=== PATIENT | male | born 1985 | race Caucasian/White ===

== ENCOUNTER 2019-10-01 14:46 | Inpatient (IN) | payer OTHER ==
--- NOTE | 2019-10-01 15:30 | BHS.RME ---
Substance Use & Tx History - Substance Use History Alcohol Substance amount: 1 pint vodka Frequency of use: Daily Substance route: Oral Date of Last Use: 10/01/19 Nicotine Substance amount: 1/2 pack Frequency of use: Daily Substance route: Smoking Date of Last Use: 10/01/19 Physical/Psych/Mental Status - Behavior General Behavior: Increased activity (restlessness, agitation) Eye Contact: Normal - Cooperativeness Cooperativeness: Cooperative - Thinking Thought Processes: Tight, Logical, Goal Directed - Physical Health Problems Is patient presently having any pain?: No Does patient presently have any injuries (include location): No Does patient currently have a fever: No Is patient : No CIWA Nausea/Vomitin Muscle Tremors: 3 Anxiety: 2 Agitation: 2 Paroxysmal Sweats: 4-Forehead w/Sweat Beads Orientation: 1-Uncertain about Date Tacttile Disturbances: 0-None Auditory Disturbances: 0-None Visual Disturbances: 0-None Headache: 0-None Present CIWA-Ar Total Score: 17
--- NOTE | 2019-10-01 16:27 | HP ---
CIWA Score Nausea/Vomitin Muscle Tremors: 3 Anxiety: 3 Agitation: 3 Paroxysmal Sweats: No Perspiration Orientation: 1-Uncertain about Date Tacttile Disturbances: 0-None Auditory Disturbances: 0-None Visual Disturbances: 0-None Headache: 0-None Present CIWA-Ar Total Score: 13 - Admission Criteria [facility]AS[facility] Guidelines: Admission for Medically Managed Detox: Requires at least one of the followin. CIWA greater than 12 2. Seizures within the past 24 hours 3. Delirium tremens within the past 24 hours 4. Hallucinations within the past 24 hours 5. Acute intervention needed for co occurring medical disorder 6. Acute intervention needed for co occurring psychiatric disorder 7. Severe withdrawal that cannot be handled at a lower level of care (continued vomiting, continued diarrhea, abnormal vital signs) requiring intravenous medication and/or fluids 8. Admission ROS BHS - HPI Allergies/Adverse Reactions: Allergies Allergy/AdvReac Type Severity Reaction Status Date / Time No Known Allergies Allergy Verified 10/01/19 16:30 History of Present Illness: 34 y.o. male requesting detox from alcohol use , reports 1 liter /day starts drinking in the mornings , denies seizures or blackouts , reports tremors denies injuries to self or others , latest use today , first age of use 23 , increased since 6 months ago . denies illicits tobacco : occasional PMHX : denies PSHX : denies PSych : denies Exam Limitations: Clinical Condition, Intoxication - Review of Systems Constitutional: Loss of Appetite EENT: reports: No Symptoms Reported Respiratory: reports: No Symptoms reported Cardiac: reports: No Symptoms Reported GI: reports: See HPI, Nausea, Poor Appetite : reports: No Symptoms Reported Musculoskeletal: reports: No Symptoms Reported Integumentary: reports: No Symptoms Reported Neuro: reports: Tremors Endocrine: reports: No Symptoms Reported Psychiatric: reports: Agitated, Anxious, Disorientated Patient History - Smoking Cessation Smoking history: Current some day smoker Have you smoked in the past 12 months: Yes Hx Chewing Tobacco Use: No Initiated information on smoking cessation: No - Substances abused Alcohol Substance route: Oral Frequency: Daily Amount used: liquor- 1 liter Age of first use: 23 Date of last use: 09/30/19 Admission Physical Exam S - Physical General Appearance: Yes: Moderate Distress, Intoxicated, Anxious HEENTM: Yes: EOMI, Hearing grossly Normal, Normocephalic, Normal Voice Respiratory: Yes: Chest Non-Tender, Lungs Clear, Normal Breath Sounds, No Respiratory Distress, No Accessory Muscle Use Neck: Yes: No masses,lesions,Nodules, Trachea in good position Cardiology: Yes: Regular Rhythm, Regular Rate, S1, S2, Tachycardia Abdominal: Yes: Non Tender, Soft Musculoskeletal: Yes: Gait Steady Extremities: Yes: Normal Range of Motion, Non-Tender, Tremors, Other (clubbing x 10 fingers) Neurological: Yes: Alert, Motor Strength 5/5, Depressed Affect Integumentary: Yes: Warm - Diagnostic (1) Alcohol intoxication Current Visit: Yes Status: Acute Qualifiers: Complication of substance-induced condition: uncomplicated Qualified Code(s): F10.920 - Alcohol use, unspecified with intoxication, uncomplicated Breathalyzer - Breathalyzer Breathalyzer: 0.082 Urine Drug Screen - Test Device Lot number: [id number] Expiration date: 11/17/20 - Control Is test valid?: Yes - Results Drug screen NEGATIVE: No Urine drug screen results: BZO-Benzodiazepines Inpatient Rehab Admission - Rehab Decision to Admit Inpatient rehab admission?: No
[2019-10-01] MEDS ORDERED: ACETAMINOPHEN 325 MG TABLET (FP) PO PRN ×2 (16:30)
[2019-10-01] MEDS ORDERED: ONDANSETRON *ODT* 4 MG TABLET SL ONE (16:30)
[2019-10-01] MEDS ORDERED: MAGNESIUM HYDROX 2400MG/30ML ORAL SUSPENSION 30 ML CUP PO PRN (16:30)
[2019-10-01] MEDS ORDERED: BISMUTH SUBSALICYLATE 524 MG/30 ML UD PO PRN (16:30)
[2019-10-01] MEDS ORDERED: MENTHOL/PHENOL 1 EACH UD MM PRN (16:30)
[2019-10-01] MEDS ORDERED: IBUPROFEN 400 MG TABLET (FP) PO PRN (16:30)
[2019-10-01] MEDS ORDERED: MAG HYDROX/AL HYDROX/SIMETH 30 ML UNIT-DOSE CUP PO PRN (16:30)
[2019-10-01] MEDS ORDERED: MAGNESIUM CITRATE 300 ML BOTTLE PO PRN (16:30)
[2019-10-01] MEDS ORDERED: METHOCARBAMOL 500 MG TABLET PO PRN (16:30)
[2019-10-01] MEDS ORDERED: chlordiazePOXIDE HCL 25 MG CAPSULE PO PRN (16:31)
[2019-10-01 16:47] VITALS: BMI 30.4
[2019-10-01] MEDS: chlordiazePOXIDE HCL 25 MG CAPSULE PO SCH ×2 (17:40→22:07)
[2019-10-01] MEDS: MELATONIN 5 MG TABLETS PO PRN (22:07)
[2019-10-01] MEDS: THIAMINE HCL 100 MG TABLET (FP) PO SCH (22:07)
[2019-10-02] MEDS: chlordiazePOXIDE HCL 25 MG CAPSULE PO SCH ×4 (06:00→22:04)
[2019-10-02] MEDS ORDERED: ONDANSETRON *ODT* 4 MG TABLET SL ONE (06:05)
--- NOTE | 2019-10-02 06:08 | PN ---
[facility] Progress Note Note: Patient complained of nausea. Denies vomiting at this time. Vital Signs Temperature 99.1 F 10/02/19 05:26 Pulse Rate 58 L 10/02/19 05:26 Respiratory Rate 18 10/02/19 05:26 Blood Pressure 126/80 10/02/19 05:26 O2 Sat by Pulse Oximetry (%) 97 10/02/19 05:26 Action: Ondansetron (Zofran Odt) 4mg sublingual ordered
--- NOTE | 2019-10-02 09:44 | EKG ---
Test Reason : Blood Pressure : / mmHG Vent. Rate : 073 BPM Atrial Rate : 073 BPM P-R Int : 174 ms QRS Dur : 094 ms QT Int : 406 ms P-R-T Axes : 050 042 039 degrees QTc Int : 447 ms NORMAL SINUS RHYTHM WITH SINUS ARRHYTHMIA NORMAL ECG NO PREVIOUS ECGS AVAILABLE Confirmed by MD HUONG, JAK ([id number]) on 10/02/2019 9:43:48 AM Referred By: Confirmed By:JAK BORJA MD
[2019-10-02] MEDS: PRENATAL VITAMINS W/ FOLIC ACID TABLET (FP) PO SCH (10:56)
[2019-10-02 11:20] LABS: HEMATOCRIT 41.3 % (35.4-49); MCH 32.5 pg (25.7-33.7); MEAN CELL VOLUME 95.8 fl (80-96); MEAN PLT VOLUME 7.2 fl (7.5-11.1); PLATELET COUNT 87 K/MM3 (134-434); RBC 4.32 M/mm3 (4.00-5.60); RDW 13.9 % (11.9-15.9); WHITE BLOOD COUNT 3.3 K/mm3 (4.0-10.0)
[2019-10-02 11:48] LABS: BILIRUBIN,TOTAL 1.6 mg/dL (0.2-1); BLOOD UREA NITROGEN 8.5 mg/dL (7-18); CALCIUM 9.7 mg/dL (8.5-10.1); CREATININE 0.6 mg/dL (0.55-1.3); POTASSIUM 3.5 mmol/L (3.5-5.1); TOT PROT 6.8 g/dl (6.4-8.2)
--- NOTE | 2019-10-02 13:37 | PN ---
S CIWA - CIWA Score Nausea/Vomitin Muscle Tremors: 3 Anxiety: 2 Agitation: 2 Paroxysmal Sweats: No Perspiration Orientation: 0-Oriented Tacttile Disturbances: 1-Very Mild Itch/Numbness Auditory Disturbances: 0-None Visual Disturbances: 0-None Headache: 1-Very Mild CIWA-Ar Total Score: 11 S Progress Note (SOAP) Subjective: alert,irritable,anxious,interrupted sleep,tremor,nausea,aching pain in the body and back Objective: 10/02/19 13:34 Vital Signs Temperature 97.3 F L 10/02/19 08:45 Pulse Rate 65 10/02/19 08:45 Respiratory Rate 18 10/02/19 08:45 Blood Pressure 133/92 10/02/19 08:45 O2 Sat by Pulse Oximetry (%) 97 10/02/19 08:45 10/02/19 13:35 Laboratory Last Values WBC 3.3 K/mm3 (4.0-10.0) L 10/02/19 07:30 RBC 4.32 M/mm3 (4.00-5.60) 10/02/19 07:30 Hgb 14.0 GM/dL (11.7-16.9) 10/02/19 07:30 Hct 41.3 % (35.4-49) 10/02/19 07:30 MCV 95.8 fl (80-96) 10/02/19 07:30 MCH 32.5 pg (25.7-33.7) 10/02/19 07:30 MCHC 34.0 g/dl (32.0-35.9) 10/02/19 07:30 RDW 13.9 % (11.9-15.9) 10/02/19 07:30 Plt Count 87 K/MM3 (134-434) L 10/02/19 07:30 MPV 7.2 fl (7.5-11.1) L 10/02/19 07:30 Sodium 138 mmol/L (136-145) 10/02/19 07:30 Potassium 3.5 mmol/L (3.5-5.1) 10/02/19 07:30 Chloride 99 mmol/L (98-107) 10/02/19 07:30 Carbon Dioxide 29 mmol/L (21-32) 10/02/19 07:30 Anion Gap 10 MMOL/L (8-16) 10/02/19 07:30 BUN 8.5 mg/dL (7-18) 10/02/19 07:30 Creatinine 0.6 mg/dL (0.55-1.3) 10/02/19 07:30 Est GFR (CKD-EPI)AfAm 149.92 10/02/19 07:30 Est GFR (CKD-EPI)NonAf 129.35 10/02/19 07:30 Random Glucose 102 mg/dL (74-106) 10/02/19 07:30 Calcium 9.7 mg/dL (8.5-10.1) 10/02/19 07:30 Total Bilirubin 1.6 mg/dL (0.2-1) H 10/02/19 07:30 AST 86 U/L (15-37) H 10/02/19 07:30 ALT 96 U/L (13-61) H 10/02/19 07:30 Alkaline Phosphatase 99 U/L (45-117) 10/02/19 07:30 Total Protein 6.8 g/dl (6.4-8.2) 10/02/19 07:30 Albumin 4.0 g/dl (3.4-5.0) 10/02/19 07:30 Syphilis Serology Non-reactive (NONREACTIVE) 10/02/19 07:30 Assessment: 10/02/19 13:36 withdrawal symptom Plan: continue detox librium regimen ,repeat hepatic function in am,inr in am
[2019-10-02] MEDS: NICOTINE POLACRILEX 2 MG GUM BC PRN ×2 (14:43→19:20)
[2019-10-02] MEDS: THIAMINE HCL 100 MG TABLET (FP) PO SCH (22:04)
[2019-10-02] MEDS: hydrOXYzine PAMOATE 25 MG CAPSULE (FP) PO PRN (23:05)
[2019-10-02] MEDS: MELATONIN 5 MG TABLETS PO PRN (23:05)
[2019-10-03] MEDS: chlordiazePOXIDE HCL 25 MG CAPSULE PO SCH ×4 (06:12→22:04)
[2019-10-03] MEDS: NICOTINE POLACRILEX 2 MG GUM BC PRN ×3 (06:13→17:18)
--- NOTE | 2019-10-03 09:27 | PN ---
S CIWA - CIWA Score Nausea/Vomitin-Mild Nausea/No Vomiting Muscle Tremors: 2 Anxiety: 2 Agitation: 3 Paroxysmal Sweats: 1-Minimal Palms Moist Orientation: 0-Oriented Tacttile Disturbances: 0-None Auditory Disturbances: 0-None Visual Disturbances: 0-None Headache: 0-None Present CIWA-Ar Total Score: 9 BHS Progress Note (SOAP) Subjective: sweats shakes poor appetite interrupted sleep Objective: 10/03/19 09:28 Vital Signs Temperature 97.8 F 10/03/19 05:26 Pulse Rate 54 L 10/03/19 05:26 Respiratory Rate 18 10/03/19 05:26 Blood Pressure 120/76 10/03/19 05:26 O2 Sat by Pulse Oximetry (%) 97 10/03/19 05:26 Laboratory Tests 10/02/19 10/02/19 10/02/19 07:30 07:30 07:30 WBC 3.3 L RBC 4.32 Hgb 14.0 Hct 41.3 MCV 95.8 MCH 32.5 MCHC 34.0 RDW 13.9 Plt Count 87 L MPV 7.2 L Sodium 138 Potassium 3.5 Chloride 99 Carbon Dioxide 29 Anion Gap 10 BUN 8.5 Creatinine 0.6 Est GFR (CKD-EPI)AfAm 149.92 Est GFR (CKD-EPI)NonAf 129.35 Random Glucose 102 Calcium 9.7 Total Bilirubin 1.6 H AST 86 H ALT 96 H Alkaline Phosphatase 99 Total Protein 6.8 Albumin 4.0 Syphilis Serology Non-reactive repeated labs pending aaox3 ambulating no acute distress Assessment: 10/03/19 09:29 withdrawals Plan: continue detox increase fluids ensure bid for lunch and dinner pending labs
[2019-10-03] MEDS: NICOTINE 21 MG/24 HOURS TOPICAL PATCH TD SCH (10:48)
[2019-10-03] MEDS: PRENATAL VITAMINS W/ FOLIC ACID TABLET (FP) PO SCH (10:49)
[2019-10-03 11:10] LABS: HEMATOCRIT 41.2 % (35.4-49); HEMOGLOBIN 13.8 GM/dL (11.7-16.9); MCH 32.3 pg (25.7-33.7); MCHC 33.4 g/dl (32.0-35.9); MEAN CELL VOLUME 96.7 fl (80-96); PLATELET COUNT 80 K/MM3 (134-434); RBC 4.26 M/mm3 (4.00-5.60); RDW 14.1 % (11.9-15.9); WHITE BLOOD COUNT 4.8 K/mm3 (4.0-10.0)
[2019-10-03 11:17] LABS: ALBUMIN 3.6 g/dl (3.4-5.0); BILIRUBIN,DIRECT 0.3 mg/dL (0.0-0.2); BILIRUBIN,TOTAL 1.2 mg/dL (0.2-1); TOT PROT 6.6 g/dl (6.4-8.2)
[2019-10-03] MEDS: hydrOXYzine PAMOATE 25 MG CAPSULE (FP) PO PRN ×2 (17:16→22:06)
[2019-10-03] MEDS: THIAMINE HCL 100 MG TABLET (FP) PO SCH (22:04)
[2019-10-03] MEDS: MELATONIN 5 MG TABLETS PO PRN (22:06)
[2019-10-04] MEDS ORDERED: chlordiazePOXIDE HCL 10 MG CAPSULE PO PRN
[2019-10-04] MEDS ORDERED: chlordiazePOXIDE HCL 10 MG CAPSULE PO SCH (05:00)
[2019-10-04] MEDS ORDERED: LORazepam 1 MG TABLET PO SCH (05:00)
[2019-10-04] MEDS: NICOTINE POLACRILEX 2 MG GUM BC PRN ×3 (09:05→21:17)
[2019-10-04] MEDS ORDERED: LORazepam 1 MG TABLET PO PRN (09:28)
--- NOTE | 2019-10-04 09:44 | PN ---
[facility] CIWA - CIWA Score Nausea/Vomitin-Mild Nausea/No Vomiting Muscle Tremors: 2 Anxiety: 2 Agitation: 2 Paroxysmal Sweats: No Perspiration Orientation: 0-Oriented Tacttile Disturbances: 1-Very Mild Itch/Numbness Auditory Disturbances: 0-None Visual Disturbances: 0-None Headache: 1-Very Mild CIWA-Ar Total Score: 9 S Progress Note (SOAP) Subjective: alert,irritable,anxious,interrupted sleep,tremor,body ache,nausea Objective: 10/04/19 09:41 Vital Signs Temperature 97.1 F L 10/04/19 08:51 Pulse Rate 63 10/04/19 08:51 Respiratory Rate 18 10/04/19 08:51 Blood Pressure 123/86 10/04/19 08:51 O2 Sat by Pulse Oximetry (%) 98 10/04/19 08:51 Laboratory Last Values WBC 4.8 K/mm3 (4.0-10.0) 10/03/19 07:50 RBC 4.26 M/mm3 (4.00-5.60) 10/03/19 07:50 Hgb 13.8 GM/dL (11.7-16.9) 10/03/19 07:50 Hct 41.2 % (35.4-49) 10/03/19 07:50 MCV 96.7 fl (80-96) H 10/03/19 07:50 MCH 32.3 pg (25.7-33.7) 10/03/19 07:50 MCHC 33.4 g/dl (32.0-35.9) 10/03/19 07:50 RDW 14.1 % (11.9-15.9) 10/03/19 07:50 Plt Count 80 K/MM3 (134-434) L 10/03/19 07:50 MPV 8.0 fl (7.5-11.1) D 10/03/19 07:50 Sodium 138 mmol/L (136-145) 10/02/19 07:30 Potassium 3.5 mmol/L (3.5-5.1) 10/02/19 07:30 Chloride 99 mmol/L (98-107) 10/02/19 07:30 Carbon Dioxide 29 mmol/L (21-32) 10/02/19 07:30 Anion Gap 10 MMOL/L (8-16) 10/02/19 07:30 BUN 8.5 mg/dL (7-18) 10/02/19 07:30 Creatinine 0.6 mg/dL (0.55-1.3) 10/02/19 07:30 Est GFR (CKD-EPI)AfAm 149.92 10/02/19 07:30 Est GFR (CKD-EPI)NonAf 129.35 10/02/19 07:30 Random Glucose 102 mg/dL (74-106) 10/02/19 07:30 Calcium 9.7 mg/dL (8.5-10.1) 10/02/19 07:30 Total Bilirubin 1.2 mg/dL (0.2-1) H 10/03/19 07:50 Direct Bilirubin 0.3 mg/dL (0.0-0.2) H 10/03/19 07:50 AST 626 U/L (15-37) H 10/03/19 07:50 ALT 431 U/L (13-61) H 10/03/19 07:50 Alkaline Phosphatase 121 U/L (45-117) H 10/03/19 07:50 Total Protein 6.6 g/dl (6.4-8.2) 10/03/19 07:50 Albumin 3.6 g/dl (3.4-5.0) 10/03/19 07:50 Syphilis Serology Non-reactive (NONREACTIVE) 10/02/19 07:30 COVID-19 (MICHAEL) Not detected (Not Detected) 10/01/19 17:00 Assessment: 10/04/19 09:42 withdrawal symptom Plan: change regimen from librium to ativan due to elevated alt,ast,alkaline phosphates,repeat hepatic function,inr in am,discussed with patient,
[2019-10-04] MEDS: NICOTINE 21 MG/24 HOURS TOPICAL PATCH TD SCH (11:18)
[2019-10-04] MEDS: LORazepam 1 MG TABLET PO SCH ×3 (11:18→22:26)
[2019-10-04] MEDS: PRENATAL VITAMINS W/ FOLIC ACID TABLET (FP) PO SCH (11:19)
[2019-10-04] MEDS: THIAMINE HCL 100 MG TABLET (FP) PO SCH (22:26)
[2019-10-04] MEDS: MELATONIN 5 MG TABLETS PO PRN (22:53)
[2019-10-04] MEDS: hydrOXYzine PAMOATE 25 MG CAPSULE (FP) PO PRN (22:53)
[2019-10-05] MEDS ORDERED: LORazepam 0.5 MG TABLET PO PRN
[2019-10-05] MEDS ORDERED: chlordiazePOXIDE HCL 10 MG CAPSULE PO SCH (05:00)
[2019-10-05] MEDS: LORazepam 0.5 MG TABLET PO SCH ×4 (05:25→22:29)
[2019-10-05] MEDS: NICOTINE POLACRILEX 2 MG GUM BC PRN ×3 (08:34→22:45)
[2019-10-05] MEDS: NICOTINE 21 MG/24 HOURS TOPICAL PATCH TD SCH (10:26)
[2019-10-05] MEDS: PRENATAL VITAMINS W/ FOLIC ACID TABLET (FP) PO SCH (10:26)
[2019-10-05 10:35] LABS: INR 0.9 (0.83-1.09); PROTHROMBIN TIME (PATIENT) 10.6 SEC (9.7-13.0)
[2019-10-05 10:41] LABS: ALBUMIN 3.7 g/dl (3.4-5.0); BILIRUBIN,DIRECT 0.2 mg/dL (0.0-0.2); BILIRUBIN,TOTAL 0.5 mg/dL (0.2-1); TOT PROT 6.9 g/dl (6.4-8.2)
--- NOTE | 2019-10-05 12:29 | PN ---
S CIWA - CIWA Score Nausea/Vomitin-No Nausea/No Vomiting Muscle Tremors: 2 Anxiety: 2 Agitation: 0-Normal Activity Paroxysmal Sweats: No Perspiration Orientation: 0-Oriented Tacttile Disturbances: 0-None Auditory Disturbances: 0-None Visual Disturbances: 0-None Headache: 0-None Present CIWA-Ar Total Score: 4 BHS Progress Note (SOAP) Subjective: Complaints of mild anxiety and tremors. Objective: 10/05/19 12:28 Vital Signs 10/05/19 10/05/19 05:12 08:32 Temperature 97.1 F L 97.3 F L Pulse Rate 69 75 Respiratory 20 16 Rate Blood Pressure 115/69 126/80 O2 Sat by Pulse 100 100 Oximetry (%) Laboratory Last Values WBC 4.8 K/mm3 (4.0-10.0) 10/03/19 07:50 RBC 4.26 M/mm3 (4.00-5.60) 10/03/19 07:50 Hgb 13.8 GM/dL (11.7-16.9) 10/03/19 07:50 Hct 41.2 % (35.4-49) 10/03/19 07:50 MCV 96.7 fl (80-96) H 10/03/19 07:50 MCH 32.3 pg (25.7-33.7) 10/03/19 07:50 MCHC 33.4 g/dl (32.0-35.9) 10/03/19 07:50 RDW 14.1 % (11.9-15.9) 10/03/19 07:50 Plt Count 80 K/MM3 (134-434) L 10/03/19 07:50 MPV 8.0 fl (7.5-11.1) D 10/03/19 07:50 PT with INR 10.60 SEC (9.7-13.0) 10/05/19 07:20 INR 0.90 (0.83-1.09) 10/05/19 07:20 Sodium 138 mmol/L (136-145) 10/02/19 07:30 Potassium 3.5 mmol/L (3.5-5.1) 10/02/19 07:30 Chloride 99 mmol/L (98-107) 10/02/19 07:30 Carbon Dioxide 29 mmol/L (21-32) 10/02/19 07:30 Anion Gap 10 MMOL/L (8-16) 10/02/19 07:30 BUN 8.5 mg/dL (7-18) 10/02/19 07:30 Creatinine 0.6 mg/dL (0.55-1.3) 10/02/19 07:30 Est GFR (CKD-EPI)AfAm 149.92 10/02/19 07:30 Est GFR (CKD-EPI)NonAf 129.35 10/02/19 07:30 Random Glucose 102 mg/dL (74-106) 10/02/19 07:30 Calcium 9.7 mg/dL (8.5-10.1) 10/02/19 07:30 Total Bilirubin 0.5 mg/dL (0.2-1) 10/05/19 07:20 Direct Bilirubin 0.2 mg/dL (0.0-0.2) 10/05/19 07:20 AST 232 U/L (15-37) H 10/05/19 07:20 ALT 482 U/L (13-61) H 10/05/19 07:20 Alkaline Phosphatase 130 U/L (45-117) H 10/05/19 07:20 Total Protein 6.9 g/dl (6.4-8.2) 10/05/19 07:20 Albumin 3.7 g/dl (3.4-5.0) 10/05/19 07:20 Syphilis Serology Non-reactive (NONREACTIVE) 10/02/19 07:30 COVID-19 (MICHAEL) Not detected (Not Detected) 10/01/19 17:00 Labs noted, still with elevated liver enzymes. Pt encouraged to follow up with PCP post discharge for further work up. Assessment: 10/05/19 12:29 Alert and oriented x 3, in no acute respiratory distress. Full ROM, ambulating in the unit without assistance. Withdrawal symptoms. Elevated liver enzymes. For D/C in AM. Plan: Continue detox protocol. D/C in AM.
[2019-10-05] MEDS: THIAMINE HCL 100 MG TABLET (FP) PO SCH (22:29)
[2019-10-05] MEDS: MELATONIN 5 MG TABLETS PO PRN (22:30)
[2019-10-06] MEDS ORDERED: LORazepam 0.5 MG TABLET PO ONE (05:00)
[2019-10-06] MEDS ORDERED: chlordiazePOXIDE HCL 10 MG CAPSULE PO ONE (05:00)
[2019-10-06] MEDS: NICOTINE POLACRILEX 2 MG GUM BC PRN (05:44)
[2019-10-06 07:25] VITALS: BP 107/65; PULSE 60; TEMP 97.7
--- NOTE | 2019-10-06 16:16 | DS ---
[facility] Detox Discharge Summary Admission Date: 10/01/19 Discharge Date: 10/06/19 - History Present History: Alcohol Dependence Additional Comments: Pt completed detox successfully and was discharged safely in stable condition. Pt instructed to follow up with PCP within 1 week and for abnormal lab results. Pertinent Past History: Alcohol dependence Nicotine use disorder - Physical Exam Results Vital Signs: Vital Signs Temperature 97.7 F 10/06/19 06:10 Pulse Rate 60 10/06/19 06:10 Respiratory Rate 20 10/06/19 06:10 Blood Pressure 107/65 10/06/19 06:10 O2 Sat by Pulse Oximetry (%) 100 10/06/19 06:10 Pertinent Admission Physical Exam Findings: Withdrawal sxs Laboratory Tests 10/01/19 10/02/19 10/02/19 17:00 07:30 07:30 WBC 3.3 L RBC 4.32 Hgb 14.0 Hct 41.3 MCV 95.8 MCH 32.5 MCHC 34.0 RDW 13.9 Plt Count 87 L MPV 7.2 L PT with INR INR Sodium Potassium Chloride Carbon Dioxide Anion Gap BUN Creatinine Est GFR (CKD-EPI)AfAm Est GFR (CKD-EPI)NonAf Random Glucose Calcium Total Bilirubin Direct Bilirubin AST ALT Alkaline Phosphatase Total Protein Albumin Syphilis Serology Non-reactive COVID-19 (MICHAEL) Not detected 10/02/19 10/03/19 10/03/19 07:30 07:50 07:50 WBC 4.8 RBC 4.26 Hgb 13.8 Hct 41.2 MCV 96.7 H MCH 32.3 MCHC 33.4 RDW 14.1 Plt Count 80 L MPV 8.0 D PT with INR INR Sodium 138 Potassium 3.5 Chloride 99 Carbon Dioxide 29 Anion Gap 10 BUN 8.5 Creatinine 0.6 Est GFR (CKD-EPI)AfAm 149.92 Est GFR (CKD-EPI)NonAf 129.35 Random Glucose 102 Calcium 9.7 Total Bilirubin 1.6 H 1.2 H Direct Bilirubin 0.3 H AST 86 H 626 H ALT 96 H 431 H Alkaline Phosphatase 99 121 H Total Protein 6.8 6.6 Albumin 4.0 3.6 Syphilis Serology COVID-19 (MICHAEL) 10/05/19 10/05/19 07:20 07:20 WBC RBC Hgb Hct MCV MCH MCHC RDW Plt Count MPV PT with INR 10.60 INR 0.90 Sodium Potassium Chloride Carbon Dioxide Anion Gap BUN Creatinine Est GFR (CKD-EPI)AfAm Est GFR (CKD-EPI)NonAf Random Glucose Calcium Total Bilirubin 0.5 Direct Bilirubin 0.2 AST 232 H ALT 482 H Alkaline Phosphatase 130 H Total Protein 6.9 Albumin 3.7 Syphilis Serology COVID-19 (MICHAEL) Labs reviewed: elevated LFTs (AST trending downward, ALT trended upward, total bilirubin trending downward); patient instructed to see PCP within 1 week - Treatment Hospital Course: Detox Protocol Followed, Detoxed Safely, Responded well, Discharged Condition Good - Medication Discharge Medications: Ambulatory Orders NK [No Known Home Medication] 10/01/19 - Diagnosis (1) Nicotine use disorder Status: Chronic (2) Elevated LFTs Status: Acute (3) Alcohol intoxication Status: Acute Qualifiers: Complication of substance-induced condition: uncomplicated Qualified Code(s): F10.920 - Alcohol use, unspecified with intoxication, uncomplicated - AMA Did Patient Leave Against Medical Advice: No (Instructed to follow up with PCP within 1 week)
== END 2019-10-06 09:20 | disposition home or self-care (01) | DRG 775 ==
LOC: YASAS 14:46 → Y6N 16:44
PROVIDERS: ADMIT Allergy & Immunology; ATTEND Allergy & Immunology
PROC: HZ2ZZZZ Detoxification Services for Substance Abuse Treatment (ICD-10-PCS; principal; 2019-10-01)
DX: F10.230 Alcohol dependence with withdrawal, uncomplicated (principal); F10.220 Alcohol dependence with intoxication, uncomplicated; Z72.0 Tobacco use; R94.5 Abnormal results of liver function studies; R68.3 Clubbing of fingers
CPT/HCPCS: 36415; 71046-TC-FY; 80053; 80076; 85027; 85610; 86780; 93005; 93010; Q0162; U0003